=== PATIENT | female | born 1985 | race Hispanic/Latino ===

== ENCOUNTER 2021-01-23 13:35 | Outpatient (CLI) | payer MEDICAID ==
[2021-01-23 14:38] LABS: Hematocrit 33.2 % (30.3-42.9); Mean Corpuscular HGB Conc 33 % (30-34); Mean Corpuscular Volume 84 fl (79-97); Platelet Count 246 K/mm3 (140-440); Red Blood Count 3.96 M/mm3 (3.65-5.03); Red Cell Distribution Width 15.5 % (13.2-15.2)
[2021-01-23 14:46] LABS: Bacteria,Urine 1+ /HPF (Negative); Bilirubin,Urine NEG (Negative); Blood,Urine NEG (Negative); Color,Urine Yellow (Yellow); Mucus,Urine FEW /HPF
[2021-01-23 14:54] LABS: Alanine Aminotransferase 8 units/L (7-56); Uric Acid 4.5 mg/dL (3.5-7.6)
[2021-01-23 15:12] VITALS: BP 104/61
== END 2021-01-23 15:41 | disposition home or self-care (01) ==
LOC: TRG 13:35 → APU 13:39 → TRG 15:41
PROVIDERS: ATTEND Obstetrics & Gynecology
DX: Z34.93 Encounter for supervision of normal pregnancy, unspecified, third trimester (principal); Z3A.37 37 weeks gestation of pregnancy
CPT/HCPCS: 36415; 59025; 81001; 82565; 83615; 84450; 84460; 84550; 85027

== ENCOUNTER 2021-02-04 23:09 | Outpatient (CLI) | payer MEDICAID ==
[2021-02-05 00:11] VITALS: BP 125/78
== END 2021-02-05 00:23 | disposition home or self-care (01) ==
LOC: TRG 23:09 → APU 23:17 → TRG 02-05 00:23
PROVIDERS: ATTEND Obstetrics & Gynecology
DX: Z34.93 Encounter for supervision of normal pregnancy, unspecified, third trimester (principal); Z3A.39 39 weeks gestation of pregnancy
CPT/HCPCS: 59025